=== PATIENT | male | born 1940 | race Caucasian/White ===

== ENCOUNTER 2018-07-18 06:37 | Day surgery (SDC) | payer MEDICARE, OTHER ==
[~2018-07-18 06:37] MED LIST: Dextrose 5%-0.45% NaCl 1,000 ML IV SCH; Sodium Chloride 0.9% 10 ML Syringe FLUSH PRN
[2018-07-18] MEDS ORDERED: fentaNYL 100 MCG/2 ML SDV IV ONE ×3 (06:38→07:27)
[2018-07-18] MEDS ORDERED: Midazolam 1 MG/ML 2 ML SDV IV ONE ×7 (06:38→07:45)
[2018-07-18] MEDS ORDERED: Midazolam 1 MG/ML 2 ML SDV ONE (06:43)
[2018-07-18] MEDS ORDERED: fentaNYL 100 MCG/2 ML SDV ONE (06:43)
--- NOTE | 2018-07-18 08:32 | OR ---
DATE: 07/18/2018 PROCEDURES: Total colonoscopy and cold snare polypectomy. INSTRUMENT USED: [id number] Olympus video colonoscope. PREMEDICATIONS: Fentanyl 100 mcg intravenous, Versed 4 mg intravenous. Nasal O2 cannula. The procedure was done under pulse oximetry, BP recording, and monitoring specialist. INDICATION: The patient with previous colonic tubular adenoma. Surveillance colonoscopic examination is done for detection of any polypoid lesions and removal, endoscopic hemostasis therapy if needed. DESCRIPTION OF PROCEDURE: Initial rectal exam was unremarkable. Rigid anoscopy showed just less than 1-cm sized benign-appearing polyp. The colonoscope was passed with ease. Photograph was taken of the rectal polyp. Cold snare polypectomy was done. The tissue was retrieved and sent for histopathology. The scope was passed with relative ease up to the ileocecal area. Photographs were taken of the normal-appearing cecum identified by double- bulged ileocecal folds. The colon was found to be redundant and tortuous, exam a bit prolonged. No bleeding was noted from any of the visualized areas at the commencement of the examination. There was some amount of fecal material that had to be aspirated clear. Bowel preparation, Seward Scale 2. No stricture. No vascular ectasia. No large isolated ulcerations seen. No evidence of diffuse inflammatory bowel disease in the form of friability, contact bleeding, or ulcerations. Few scattered diverticula were noted in the distal left colon. Probing the proximal sides of folds and flexures, using adequate distention and clearing up the stool material, withdrawal of the scope was made. Cecum-to- rectum time over 6 minutes. No bleeding was noted from any of the visualized areas at the completion of examination. IMPRESSION: 1. Rectal polyp. 2. Diverticulosis. The patient tolerated the procedure well. [facility] /[id number]
== END 2018-07-18 10:24 | disposition home or self-care (01) ==
LOC: DL.ENDO 06:37
PROVIDERS: ATTEND Internal Medicine Gastroenterology
DX: Z12.11 Encounter for screening for malignant neoplasm of colon (principal); K57.30 Diverticulosis of large intestine without perforation or abscess without bleeding; D12.8 Benign neoplasm of rectum; I10 Essential (primary) hypertension; E66.09 Other obesity due to excess calories; H91.90 Unspecified hearing loss, unspecified ear; E78.5 Hyperlipidemia, unspecified; K21.9 Gastro-esophageal reflux disease without esophagitis; Z86.010 Personal history of colon polyps
CPT/HCPCS: 45385; J2250; J3010; J7042